=== PATIENT | male | born 1930 | race Caucasian/White ===

== ENCOUNTER 2017-11-29 19:15 | Emergency (ER) | payer MEDICARE, OTHER ==
[~2017-11-29] VITALS: Ht 180.3 cm; Wt 95.2 kg
[~2017-11-29 19:15] MED LIST: BISHYD2.5; BP MED; Bisoprolol-Hct1 EACH; CIPR500; CIPR500 PO; CIPRO500 MG PO; Cipro500 MG PO; DOCU100 PO; FERSU90EL; FINA5; FINA5 PO; Ferrous Glucon325 M2 PO; HYDR1TAB94 PO; LEVSOD100 PO; LEVSOD25; LIDO2TG30; MAGOXI400; MAGOXI400 PO; OXYACE5T PO; PRED20 PO; PROACE100 PO; RXOXYACE PO; Rapaflo8 MG; Rapaflo8 MG PO; SENN187 PO; SLOW MAG PO; TAMS.4ER; TAMS.4ER PO; TRIHYD253A; TRIHYD253A PO; TRIM100; Toprol Xl50 MG
[2017-11-29] MEDS ORDERED: Norco 5-325 Ta1 EACH PO (20:56)
== END 2017-11-29 21:17 | disposition home or self-care (01) ==
LOC: ER 19:15
DX: M51.36 Other intervertebral disc degeneration, lumbar region (principal); I10 Essential (primary) hypertension
CPT/HCPCS: 72100; 96374; 96375; 99284; J1170; J1885; J2405

== ENCOUNTER 2022-05-25 18:27 | Emergency (ER) | payer MEDICARE, OTHER ==
[~2022-05-25] VITALS: Ht 180.3 cm; Wt 93.0 kg
[~2022-05-25 18:27] MED LIST changes: +Norco 5-325 Ta1 EACH PO
[2022-05-25 18:55] LABS: Calcium, Ionized (POC) 1.24 mmol/L (1.10-1.46); Chloride (POC) 102 mmol/L (98-108); Glucose (ISTAT POC) 198 mg/dL (70-99); Hemoglobin (POC) 13.6 g/dL (13.5-17.5); Sodium (POC) 136 mmol/L (135-148); Total CO2 (POC) 24 mmol/L (21-32)
== END 2022-05-25 19:42 | disposition home or self-care (01) ==
LOC: ER 18:27
PROVIDERS: Physician Assistant
DX: R31.0 Gross hematuria (principal); N40.1 Benign prostatic hyperplasia with lower urinary tract symptoms; R33.8 Other retention of urine; E03.9 Hypothyroidism, unspecified; I10 Essential (primary) hypertension; Z76.0 Encounter for issue of repeat prescription
CPT/HCPCS: 36415; 51798; 80047; 85014